=== PATIENT | female | born 1925 ===

== ENCOUNTER 2016-10-20 13:19 | Outpatient (RCR) | payer OTHER | END 2016-11-08 | disposition home or self-care (01) | LOC: PTY 13:19 | PROVIDERS: ATTEND Internal Medicine | DX: M25.551 Pain in right hip (principal); M19.90 Unspecified osteoarthritis, unspecified site; M81.0 Age-related osteoporosis without current pathological fracture; R53.1 Weakness; M54.10 Radiculopathy, site unspecified | CPT/HCPCS: 97110; 97162; G0283 ==